=== PATIENT | female | born 1985 | race Caucasian/White ===

== ENCOUNTER 2016-10-12 02:19 | Emergency (ER) | payer SELFPAY | END 2016-10-12 04:30 | disposition left against medical advice (07) | LOC: ER1 02:19 | DX: Z53.21 Procedure and treatment not carried out due to patient leaving prior to being seen by health care provider (principal) | CPT/HCPCS: 93005 ==

== ENCOUNTER 2016-11-11 19:47 | Emergency (ER) | payer OTHER ==
[2016-11-11 20:48] LABS: HEMOGLOBIN 12.6 gm/dl (12.3-15.3); RED BLOOD COUNT 4.33 M/UL (4.00-5.10); WHITE BLOOD COUNT 7.8 K/UL (4.5-11.0)
[2016-11-11 21:03] LABS: BUN/CREATININE RATIO 11 (0-10)
== END 2016-11-11 22:30 | disposition home or self-care (01) ==
LOC: ER1 19:47
PROVIDERS: Student in an Organized Health Care Education/Training Program
DX: R10.13 Epigastric pain (principal)
CPT/HCPCS: 36415; 80053; 81001; 82150; 83690; 84703; 85025; 99284

== ENCOUNTER 2021-01-21 11:26 | Emergency (ER) | payer OTHER ==
[~2021-01-21 11:26] MED LIST: FERROUS SULFAT325 MG PO; IBUPROFEN600 MG PO; NORCO 5-325 TA1 EACH PO; PROGESTERONE100 MG PO; PROVERA10 MG PO; ZOFRAN ODT 4 MG4 MG SL
[2021-01-21 12:11] LABS: HEMOGLOBIN 9.8 gm/dl (12.3-15.3); RED BLOOD COUNT 4.16 M/UL (4.00-5.10); WHITE BLOOD COUNT 4.4 K/UL (4.5-11.0)
[2021-01-21 12:21] LABS: BUN/CREATININE RATIO 19 (0-10)
[2021-01-21] MEDS ORDERED: PROVERA10 MG PO (13:49)
[2021-01-21] MEDS ORDERED: ZOFRAN ODT 4 MG4 MG PO (13:50)
== END 2021-01-21 14:07 | disposition home or self-care (01) ==
LOC: ER1 11:26
PROVIDERS: Emergency Medicine
DX: N92.0 Excessive and frequent menstruation with regular cycle (principal); Z90.49 Acquired absence of other specified parts of digestive tract; Z90.89 Acquired absence of other organs
CPT/HCPCS: 80053; 81001; 84703; 85025; 86850; 86900; 86901; 99284

== ENCOUNTER 2021-02-10 20:53 | Emergency (ER) | payer OTHER ==
[~2021-02-10 20:53] MED LIST changes: +ZOFRAN ODT 4 MG4 MG PO
[2021-02-10 21:22] LABS: HEMOGLOBIN 9.1 gm/dl (12.3-15.3); RED BLOOD COUNT 3.9 M/UL (4.00-5.10); WHITE BLOOD COUNT 5.2 K/UL (4.5-11.0)
[2021-02-10 21:43] LABS: BUN/CREATININE RATIO 6 (0-10)
[2021-03-17] MEDS ORDERED: IRON PO (13:34)
[2021-03-17] MEDS ORDERED: OLOPATADINE 0.2% EYEBOTH (13:35)
[2021-03-17] MEDS ORDERED: EPIPEN 2-P0.3 MG/0.3 INJ (13:35)
[2021-03-17] MEDS ORDERED: PRENATAL VITAM1 EAC3 PO (13:36)
[2021-03-19] MEDS ORDERED: COLACE100 MG PO (09:23)
[2021-03-19] MEDS ORDERED: IBUPROFEN800 MG PO (09:23)
[2021-03-19] MEDS ORDERED: PERCOCET 5/325 T1 EA PO (09:23)
== END 2021-02-10 23:04 | disposition home or self-care (01) ==
LOC: ER1 20:53
PROVIDERS: Emergency Medicine
DX: N92.0 Excessive and frequent menstruation with regular cycle (principal); D64.9 Anemia, unspecified
CPT/HCPCS: 80053; 85025; 99283

== ENCOUNTER 2021-02-24 20:13 | Emergency (ER) | payer OTHER ==
[2021-02-24 20:39] LABS: RED BLOOD COUNT 2.88 M/UL (4.00-5.10); WHITE BLOOD COUNT 5.9 K/UL (4.5-11.0)
[2021-02-24 21:00] LABS: BUN/CREATININE RATIO 14 (0-10)
[2021-02-24 21:08] LABS: HEMOGLOBIN 6.5 gm/dl (12.3-15.3)
[2021-02-25 04:23] LABS: HEMOGLOBIN 8.3 gm/dl (12.3-15.3)
[2021-03-17] MEDS ORDERED: IRON PO (13:34)
[2021-03-17] MEDS ORDERED: EPIPEN 2-P0.3 MG/0.3 INJ (13:35)
[2021-03-17] MEDS ORDERED: OLOPATADINE 0.2% EYEBOTH (13:35)
[2021-03-17] MEDS ORDERED: PRENATAL VITAM1 EAC3 PO (13:36)
[2021-03-19] MEDS ORDERED: COLACE100 MG PO (09:23)
[2021-03-19] MEDS ORDERED: IBUPROFEN800 MG PO (09:23)
[2021-03-19] MEDS ORDERED: PERCOCET 5/325 T1 EA PO (09:23)
== END 2021-02-25 06:20 | disposition home or self-care (01) ==
LOC: ER1 20:13
PROVIDERS: Family Medicine; Physician Assistant
DX: R60.0 Localized edema (principal); D64.9 Anemia, unspecified; Z90.89 Acquired absence of other organs; Z90.49 Acquired absence of other specified parts of digestive tract
CPT/HCPCS: 36430; 80053; 81001; 82550; 82553; 83735; 83874; 83880; 84439; 84443; 84484; 84703; 85014; 85018; 85025; 85610; 85652; 86140; 86850; 86900; 86901; 86920; 87086; 93005; 99283; P9016

== ENCOUNTER → 2021-03-17 | Outpatient (CLI) | payer OTHER ==
[~2021-03-17] MED LIST changes: +COLACE100 MG PO; +EPIPEN 2-P0.3 MG/0.3 INJ; +IBUPROFEN800 MG PO; +IRON PO; +OLOPATADINE 0.2% EYEBOTH; +PERCOCET 5/325 T1 EA PO; +PRENATAL VITAM1 EAC3 PO
[2021-03-17 13:32] LABS: HEMOGLOBIN 9.9 gm/dl (12.3-15.3); RED BLOOD COUNT 4.12 M/UL (4.00-5.10); WHITE BLOOD COUNT 6.3 K/UL (4.5-11.0)
== END ==
LOC: OPSV2 12:30
PROVIDERS: Obstetrics & Gynecology
DX: Z01.812 Encounter for preprocedural laboratory examination (principal); N93.9 Abnormal uterine and vaginal bleeding, unspecified
CPT/HCPCS: 36415; 81001; 85025

== ENCOUNTER → 2021-03-19 | Day surgery (SDC) | payer OTHER | END | disposition home or self-care (01) | LOC: OR 05:51 | DX: N84.0 Polyp of corpus uteri (principal); D25.9 Leiomyoma of uterus, unspecified; D64.9 Anemia, unspecified; Z91.040 Latex allergy status; Z79.899 Other long term (current) drug therapy | CPT/HCPCS: 84703; J0690; J1100; J1885; J2001; J2250; J2405; J2704; J3010; J7120 ==

== ENCOUNTER 2021-07-17 19:55 | Emergency (ER) | payer SELFPAY ==
[2021-07-17 22:00] LABS: HEMOGLOBIN 10.7 gm/dl (12.3-15.3); RED BLOOD COUNT 4.08 M/UL (4.00-5.10); WHITE BLOOD COUNT 7.5 K/UL (4.5-11.0)
[2021-07-17 22:18] LABS: BUN/CREATININE RATIO 16 (0-10)
== END 2021-07-17 23:20 | disposition home or self-care (01) ==
LOC: ER1 19:55
PROVIDERS: Emergency Medicine
DX: D64.9 Anemia, unspecified (principal); R53.1 Weakness
CPT/HCPCS: 80048; 84702; 85025; 99284

== ENCOUNTER 2022-01-08 22:42 | Emergency (ER) | payer SELFPAY ==
[2022-01-08 23:20] LABS: HEMOGLOBIN 10.4 gm/dl (12.3-15.3); RED BLOOD COUNT 4.17 M/UL (4.00-5.10); WHITE BLOOD COUNT 5.4 K/UL (4.5-11.0)
[2022-01-08 23:46] LABS: BUN/CREATININE RATIO 13 (0-10)
== END 2022-01-09 03:00 | disposition home or self-care (01) ==
LOC: ER1 22:42
PROVIDERS: Family Medicine
DX: R07.89 Other chest pain (principal); R00.2 Palpitations
CPT/HCPCS: 71045; 80053; 82550; 82553; 83735; 84100; 84439; 84443; 84484; 85025; 99285